=== PATIENT | male | born 1980 | race Hispanic/Latino ===

== ENCOUNTER 2024-10-12 18:02 | Emergency (ER) | payer SELFPAY ==
[2024-10-12 20:29] LABS: Albumin 3.5 g/dL (3.4-5.0); Anion Gap 7.7 mEq/L (5.0-15.0); Bilirubin Total 0.5 mg/dL (0.2-1.0); Globulin 3.6 g/dL (2.3-3.5); Potassium 3.7 mEq/L (3.5-5.1); Protein, Total 7.1 g/dL (6.4-8.2)
[2024-10-12 20:31] LABS: Absolute Eosinophils 0.2 K/uL (0-0.5); Absolute Monocytes 0.8 K/uL (0.1-1.3); Absolute Neutrophil 3.8 K/uL (1.8-8.0); Basophils % 0.6 % (0-1.3); Hematocrit 44.6 % (39.6-49.0); Hemoglobin 15.5 g/dL (13.6-17.9); Lymphocytes % 29.5 % (15.3-44.8); MCH 31.3 pg (27.0-35.0); MCHC 34.6 g/dL (32.0-36.0); MCV 90.3 fL (80-100); MPV 9.6 fL (7.6-11.3); Monocytes % 11.6 % (3.3-12.3); Neutrophils % 55.3 % (41.7-73.7); Platelets 182 thou/uL (152-406); RBC Red Blood Cell Count 4.94 M/uL (4.33-5.43); Red Cell Distribution Width 14.7 % (12.1-15.2)
--- NOTE | 2024-10-12 22:01 | RAD REPORT ---
EXAMINATION: CT Abdomen Pelvis W Contrast CLINICAL INDICATION: Male, 44 years old. ABD PAIN TECHNIQUE: CT abdomen and pelvis was performed, after the administration of IV contrast, as per [facility] protocol. Axial, sagittal and coronal reconstructions were obtained. One or more of the following dose reduction techniques were used: Automated exposure control, adjustment of the mA and k V according to patient size, and iterative reconstruction. Unless otherwise specified, incidental findings do not require dedicated imaging follow-up. COMPARISON: No prior exam. FINDINGS: LOWER CHEST: The visualized lung bases are clear. Elevation of the right hemidiaphragm, with platelik e subsegmental atelectasis. LIVER: Normal in size and contour. Numerous subcentimeter hypoattenuating lesions, difficult to jae cterize but may suggest small cysts. No suspicious focal lesion. BILIARY SYSTEM: Numerous large cholesterol containing stones. No pericholecystic fluid or wall thicke jesus alberto SPLEEN: Normal size. No focal lesion. PANCREAS: No mass, ductal dilation, or annabelle-pancreatic fluid. ADRENALS: Normal; no mass. KIDNEYS: Normal size and contour. No hydronephrosis. Left lower pole calculi not exceeding 2 mm URINARY BLADDER: Suboptimally distended limiting evaluation. GASTROINTESTINAL TRACT: No evidence of free air, significant intra-abdominal free fluid, bowel obstru ction or abscess. APPENDIX: Normal appendix. LYMPH NODES: No lymphadenopathy. MUSCULOSKELETAL: No acute or suspicious osseous abnormality. ADDITIONAL FINDINGS: None. IMPRESSION: Nonobstructing left lower pole tiny renal calculi. Cholelithiasis. No other acute or concerning abnormalities seen in the abdomen or pelvis.
--- NOTE | 2024-10-12 22:08 | ER ---
Nurse's Notes [facility] Name: Peter Baird Age: 44 yrs Sex: Male : 1980 Arrival Date: 10/12/2024 Time: 18:02 Bed 13 Private MD: Diagnosis: Lower abdominal pain, unspecified;Other cholelithiasis without obstruction Presentation: 10/12 18:32 Chief complaint: Patient states: Mouth gets watery, entire abdominal cramping with ll1 nausea and dry heaves since 10 AM. Now pain mostly LUQ. Coronavirus screen: Client denies travel out of the [place] in the last 14 days. At this time, the client does not indicate any symptoms associated with coronavirus-19. Ebola Screen: Patient denies travel to an Ebola-affected area in the 21 days before illness onset. Initial Sepsis Screen: Does the patient meet any 2 criteria? No. Patient's initial sepsis screen is negative. Does the patient have a suspected source of infection? No. Patient's initial sepsis screen is negative. Risk Assessment: Do you want to hurt yourself or someone else? Patient reports no desire to harm self or others. Onset of symptoms was October 12, 2024. 18:32 Method Of Arrival: Ambulatory ll1 18:32 Acuity: DEN 3 ll1 Triage Assessment: 18:34 General: Appears uncomfortable, Behavior is calm, cooperative, appropriate for age. ll1 Pain: Complains of pain in abdomen Quality of pain is described as aching, crampy. Neuro: No deficits noted. GI: Reports upper abdominal pain, cramping, nausea, vomiting. Historical: - Allergies: 18:32 No Known Allergies; ll1 - Home Meds: 18:32 None [Active]; ll1 - PMHx: 18:32 None; ll1 - PSHx: 18:32 None; ll1 - Immunization history:: Adult Immunizations up to date. - Infectious Disease History:: Denies. - Social history:: Smoking status: Patient denies any tobacco usage or history of. Screenin:40 [facility] ED Fall Risk Assessment (Adult) History of falling in the last 3 months, lg3 including since admission No falls in past 3 months (0 pts) Confusion or Disorientation No (0 pts) Intoxicated or Sedated No (0 pts) Impaired Gait No (0 pts) Mobility Assist Device Used No (0 pt) Altered Elimination No (0 pt) Score/Fall Risk Level 0 - 2 = Low Risk Oriented to surroundings, Maintained a safe environment, Educated pt \T\ family on fall prevention, incl call for assistance when getting out of bed, Assessed \T\ reinforced patient's understanding of fall precautions. Abuse screen: Denies threats or abuse. Denies injuries from another. Nutritional screening: No deficits noted. Tuberculosis screening: No symptoms or risk factors identified. Assessment: 21:40 General: Appears in no apparent distress. uncomfortable, Behavior is calm, cooperative. lg3 Pain: Complains of pain in left upper quadrant Pain does not radiate. Pain currently is 3 out of 10 on a pain scale. Quality of pain is described as crampy, pressure, Also complains of nausea. Neuro: No deficits noted. Byrd Agitation-Sedation Scale (RASS): 0 - Alert and Calm Level of Consciousness is awake, alert, obeys commands, Oriented to person, place, time, situation. Cardiovascular: No deficits noted. Denies chest pain, shortness of breath, Capillary refill < 3 seconds Clubbing of nail beds is absent JVD is absent Patient's skin is warm and dry. Respiratory: No deficits noted. Airway is patent Respiratory effort is even, unlabored, Respiratory pattern is regular, symmetrical. GI: No deficits noted. Abdomen is flat, non-distended, Bowel sounds present X 4 quads. Abd is soft and non tender X 4 quads. Reports upper abdominal pain, cramping, nausea. : No signs and/or symptoms were reported regarding the genitourinary system. EENT: No deficits noted. No signs and/or symptoms were reported regarding the EENT system. Derm: No deficits noted. No signs and/or symptoms reported regarding the dermatologic system. Skin is intact, is healthy with good turgor, Skin is dry, Skin is normal, Skin temperature is warm. Musculoskeletal: No deficits noted. No signs and/or symptoms reported regarding the musculoskeletal system. Circulation, motion, and sensation intact. Range of motion: intact in all extremities. Vital Signs: 18:32 BP 133 / 72; Pulse 72; Resp 16; Pulse Ox 100% ; Weight 86.18 kg; Height 5 ft. 7 in. ; ll1 Pain 0/10; 21:40 BP 127 / 73; Pulse 77; Resp 17 S; Pulse Ox 100% on R/A; lg3 18:32 Body Mass Index 29.76 (86.18 kg, 170.18 cm) ll1 18:32 Pain Scale: Adult ll1 ED Course: 18:04 Patient arrived in ED. mr 18:04 Sarah Rooney MD is Attending Physician. sp3 18:12 Arm band placed on. 1 18:31 Jazzmine Tejada F[facility]-C [facility]. kb 18:34 Triage completed. [facility] 19:51 CBC with Diff Sent. f 19:51 CMP Sent. [facility] 19:51 Lipase Sent. [facility] 19:52 Inserted saline lock: 22 gauge in right antecubital area, using aseptic technique. [facility] Blood collected. Flushed with 10 mL NS. 19:52 Initial lab(s) drawn, by me, sent to lab. [facility] 20:01 Radiology exam delayed due to lab results not completed at this time. 3 21:02 Zachariah Bryant, RN is Primary Nurse. rg5 21:05 CT Abd/Pelvis - IV Contrast Only In Process Unspecified. EDMS 21:40 Patient has correct armband on for positive identification. Bed in low position. Call lg3 light in reach. Door closed. Warm blanket given. 22:22 No provider procedures requiring assistance completed. IV discontinued, intact, lg3 bleeding controlled, No redness/swelling at site. Pressure dressing applied. Administered Medications: No medications were administered Medication: 21:40 VIS not applicable for this client. lg3 Outcome: 22:08 Discharge ordered by MD. kb 22:22 Discharged to home ambulatory, lg3 22:22 Condition: stable 22:22 Discharge instructions given to patient, Instructed on discharge instructions, follow up and referral plans. Demonstrated understanding of instructions, follow-up care, 22:22 Patient left the ED. lg3 Signatures: Dispatcher [employer] EDMS Jazzmine Tejada FNP-C FNP-Jaycee Ina Kim, Reg Reg [place] mw3 Larisa Persaud RN RN lg3 Gonzalo Chaves RN RN ll1 Sarah Rooney MD MD sp3 Ellie Sapp [facility] Zachariah Bryant, RN RN rg5 Corrections: (The following items were deleted from the chart) 18:36 18:32 BP 133 / 72; Pulse 72bpm; Resp 16bpm; Pulse Ox 100%; Pain 0/10, Adult; ll1 ll1
--- NOTE | 2024-10-12 22:08 | EDPHYS ---
Physician Documentation [facility] Name: Peter Baird Age: 44 yrs Sex: Male : 1980 Arrival Date: 10/12/2024 Time: 18:02 Bed 13 Private MD: ED Physician Sarah Rooney HPI: 10/12 22:39 This 44 yrs old Male presents to ER via Ambulatory with complaints of kb Abdominal Pain. 22:39 Pt is a 44 year old male who presents for lower abd pain and nausea that started today. kb States he has had this a few times over the last year with 4-5 months in between episodes. Reports he gets a tight feeling in his lower abd that radiates up to the top and then releases. Denies diarrhea, vomiting, fever. Historical: - Allergies: 18:32 No Known Allergies; ll1 - Home Meds: 18:32 None [Active]; ll1 - PMHx: 18:32 None; ll1 - PSHx: 18:32 None; ll1 - Immunization history:: Adult Immunizations up to date. - Infectious Disease History:: Denies. - Social history:: Smoking status: Patient denies any tobacco usage or history of. ROS: 22:37 Constitutional: As per HPI kb Exam: 22:37 Constitutional: This is a well developed, well nourished patient who is awake, alert, kb and in no acute distress. Head/Face: Normocephalic, atraumatic. ENT: Moist Mucous membranes Cardiovascular: Regular rate Respiratory: Respirations even and unlabored. No increased work of breathing. Talking in full sentences Abdomen/GI: Soft, non-tender. No distention Skin: Warm, dry with normal turgor. Normal color. MS/ Extremity: Pulses equal, no cyanosis. Neurovascular intact. Full, normal range of motion. Neuro: Awake and alert, GCS 15, oriented to person, place, time, and situation. Vital Signs: 18:32 BP 133 / 72; Pulse 72; Resp 16; Pulse Ox 100% ; Weight 86.18 kg; Height 5 ft. 7 in. ; ll1 Pain 0/10; 21:40 BP 127 / 73; Pulse 77; Resp 17 S; Pulse Ox 100% on R/A; lg3 18:32 Body Mass Index 29.76 (86.18 kg, 170.18 cm) ll1 18:32 Pain Scale: Adult ll1 MDM: 18:29 Medical Screening Exam initiated sp3 22:40 Differential diagnosis: appendicitis, diverticulitis, gastritis, gastroesophageal kb reflux disease, non-specific abd pain, pancreatitis. Data reviewed: vital signs, nurses notes. Counseling: I had a detailed discussion with the patient and/or guardian regarding the historical points, exam findings, and any diagnostic results supporting the discharge/admit diagnosis, lab results, radiology results, the need for outpatient follow up, a provider contracting consultant, to return to the emergency department if symptoms worsen or persist or if there are any questions or concerns that arise at home. 10/12 18:36 Order name: CBC with Diff; Complete Time: 20:34 kb 10/12 18:36 Order name: CMP; Complete Time: 20:29 kb 10/12 18:36 Order name: Lipase; Complete Time: 20:29 kb 10/12 18:36 Order name: CT Abd/Pelvis - IV Contrast Only; Complete Time: 22:02 kb 10/12 18:36 Order name: IV Saline Lock; Complete Time: 19:51 kb 10/12 18:36 Order name: Labs collected and sent; Complete Time: 19:51 kb Administered Medications: No medications were administered Disposition Summary: 10/12/24 22:08 Discharge Ordered Notes: Location: Home kb Condition: Stable kb Diagnosis - Lower abdominal pain, unspecified kb - Other cholelithiasis without obstruction kb Followup: kb - With: Emergency Department - When: As needed - Reason: Worsening of condition Followup: kb - With: Private Physician - When: 2 - 3 days - Reason: Recheck today's complaints, Continuance of care, Re-evaluation by your physician Discharge Instructions: - Discharge Summary Sheet kb - Cholelithiasis, [id number] kb - Abdominal Pain, Adult, [id number] kb Forms: - Medication Reconciliation Form kb - Antibiotic Education kb - Prescription Opioid Use kb - Patient Portal Instructions kb - Leadership Thank You Letter kb Signatures: Dispatcher [employer] Jazzmine Pruitt FNP-C FNP-Larisa Ferraro RN RN lg3 Gonzalo Chaves RN RN ll1 Sarah Rooney MD MD sp3
[2024-10-15 15:39] VITALS: BP 127/73; O2SAT 100
== END 2024-10-12 22:22 | disposition home or self-care (01) ==
LOC: ER 18:02
DX: K80.80 Other cholelithiasis without obstruction (principal); R10.30 Lower abdominal pain, unspecified
CPT/HCPCS: 36415; 74177; 80053; 83690; 85025; 99283; Q9967

== ENCOUNTER 2025-01-03 08:33 | Emergency (ER) | payer SELFPAY ==
[2025-01-03] MEDS ORDERED: NA CHLORIDE 0.9% 1,000 ML ONE (08:51)
[2025-01-03] MEDS ORDERED: ONDANSETRON 4 MG/2 ML VIAL ONE ×2 (08:51→09:09)
[2025-01-03] MEDS ORDERED: MORPHINE 4 MG/ML SYR ONE (08:51)
[2025-01-03] MEDS ORDERED: HYDROMORPHONE HCL 1 MG/ML INJ ONE ×2 (09:09→10:28)
[2025-01-03 09:28] LABS: Absolute Eosinophils 0.1 K/uL (0-0.5); Absolute Monocytes 1.1 K/uL (0.1-1.3); Absolute Neutrophil 3.8 K/uL (1.8-8.0); Basophils % 0.5 % (0-1.3); Eosinophils % 1.3 % (0-4.4); Hematocrit 47.4 % (39.6-49.0); Lymphocytes % 37.4 % (15.3-44.8); MCH 31.8 pg (27.0-35.0); MCHC 35.9 g/dL (32.0-36.0); MCV 88.7 fL (80-100); MPV 10.3 fL (7.6-11.3); Monocytes % 13.7 % (3.3-12.3); Neutrophils % 47.1 % (41.7-73.7); Nucleated Red Blood Cells % 0.1 % (0-0); Platelets 217 thou/uL (152-406); RBC Red Blood Cell Count 5.34 M/uL (4.33-5.43); Red Cell Distribution Width 13.3 % (12.1-15.2)
[2025-01-03 09:33] LABS: Albumin 3.6 g/dL (3.4-5.0); Albumin/Globulin Ratio 0.9 (1.1-1.8); Anion Gap 13.2 mEq/L (5.0-15.0); Bilirubin Total 0.7 mg/dL (0.2-1.0); Globulin 4.1 g/dL (2.3-3.5); Potassium 3.2 mEq/L (3.5-5.1); Protein, Total 7.7 g/dL (6.4-8.2)
[2025-01-03 11:19] LABS: Specific Gravity 1.021 (1.005-1.030); Sqamous Epithelial <5 /HPF (None Seen); Urine Bacteria None Seen /HPF (<20); Urine Bilirubin NEGATIVE (Negative); Urine Blood Negative (Negative); Urine Clarity Turbid (Clear); Urine Color Light-Yellow (Yellow); Urine Glucose NEGATIVE (Negative); Urine Ketones TRACE (Negative); Urine Microscopic Reflex YN ORDER UMIC; Urine Nitrite NEGATIVE (Negative); Urine Protein NEGATIVE (Negative); Urine RBC <5 /HPF (None Seen); Urine Urobilinogen Normal (Normal); Urine WBC <5 /HPF (<5)
[2025-01-03 11:20] LABS: Urine Culture Reflex Order NOT NEEDED; Urine Mucus Slight /HPF (None Seen)
--- NOTE | 2025-01-03 12:03 | RAD REPORT ---
EXAM: Right upper quadrant ultrasound. CLINICAL HISTORY: RUQ pain COMPARISON: None. FINDINGS: Gallbladder: Large gallstone in the region of the gallbladder neck. Bile ducts: No intrahepatic or extrahepatic biliary dilatation. Common bile duct measures 5 mm. Limited imaging of the liver shows no concerning finding. IMPRESSION: Cholelithiasis.
--- NOTE | 2025-01-03 12:39 | ER ---
Nurse's Notes [facility] Name: Peter Baird Age: 44 yrs Sex: Male : 1980 Arrival Date: 01/03/2025 Time: 08:33 Bed 8 Private MD: Diagnosis: Biliary colic, abdominal pain Presentation: 01/03 08:49 Chief complaint: Patient states: Upper abdominal pain x 10 minutes, had a milk shake jl7 about an hour ago, hx of cholelithiasis. Coronavirus screen: At this time, the client does not indicate any symptoms associated with coronavirus-19. Ebola Screen: No symptoms or risks identified at this time. Initial Sepsis Screen: Does the patient meet any 2 criteria? No. Patient's initial sepsis screen is negative. Does the patient have a suspected source of infection? No. Patient's initial sepsis screen is negative. Risk Assessment: Do you want to hurt yourself or someone else? Patient reports no desire to harm self or others. Onset of symptoms was January 03, 2025 at 08:35. 08:49 Method Of Arrival: Ambulatory jl7 08:49 Acuity: DEN 3 jl7 Triage Assessment: 08:52 General: Appears in no apparent distress. uncomfortable, Behavior is cooperative, jl7 anxious, restless. Pain: Complains of pain in right upper quadrant and left upper quadrant Pain currently is 10 out of 10 on a pain scale. Historical: - Allergies: 08:52 No Known Allergies; jl7 - Home Meds: 08:52 None [Active]; jl7 - PMHx: 08:52 cholelithiasis; jl7 - PSHx: 08:52 None; jl7 - Immunization history:: Adult Immunizations unknown. - Infectious Disease History:: Denies. - Social history:: Smoking status: Patient denies any tobacco usage or history of. Screenin:55 [facility] ED Fall Risk Assessment (Adult) History of falling in the last 3 months, aa5 including since admission No falls in past 3 months (0 pts) Confusion or Disorientation No (0 pts) Intoxicated or Sedated No (0 pts) Impaired Gait No (0 pts) Mobility Assist Device Used No (0 pt) Altered Elimination No (0 pt) Score/Fall Risk Level 0 - 2 = Low Risk Oriented to surroundings, Maintained a safe environment, Educated pt \\T\\ family on fall prevention, incl call for assistance when getting out of bed, Assessed \\T\\ reinforced patient's understanding of fall precautions. Abuse screen: Denies threats or abuse. Nutritional screening: No deficits noted. Tuberculosis screening: No symptoms or risk factors identified. Assessment: 08:53 General: Appears uncomfortable, Behavior is cooperative, restless. Pain: Complains of aa5 pain in right upper quadrant, left upper quadrant, and lower back Pain currently is 10 out of 10 on a pain scale. Quality of pain is described as crampy, sharp, shooting, Pain began today Is continuous, Noted to be guarding, moaning, restless. Neuro: Level of Consciousness is awake, alert, obeys commands, Oriented to person, place, time, situation. Cardiovascular: Heart tones S1 S2 present Rhythm is regular. Respiratory: Airway is patent Respiratory effort is even, unlabored, Respiratory pattern is tachypnea. GI: Abdomen is round non-distended, Bowel sounds present X 4 quads. Abdomen is tender to palpation in right upper quadrant and left upper quadrant Reports nausea, vomiting. : No signs and/or symptoms were reported regarding the genitourinary system. EENT: No signs and/or symptoms were reported regarding the EENT system. Derm: Skin is diaphoretic, Skin is pale, Skin temperature is cool. Musculoskeletal: Range of motion: intact in all extremities. 08:53 Reassessment: Pt pacing in the room, refusing to sit on bed, pt states "I can't sit, it aa5 hurts too bad" . 09:00 Reassessment: Pt now in bed. . aa5 09:17 Reassessment: Pt appears calm and more comfortable now, lying down in bed. . aa5 09:20 Reassessment: Pt resting in bed with eyes closed, easy to awaken to verbal stimuli. . aa5 General: Appears comfortable. 10:27 Reassessment: Patient is alert, oriented x 3, equal unlabored respirations, skin aa5 warm/dry/pink. Pt c/o increased pain. . 10:27 Pain: Pain currently is 5 out of 10 on a pain scale. aa5 10:58 Reassessment: Pt to US . aa5 12:00 Reassessment: Pt sleeping. . aa5 12:55 Reassessment: Patient is alert, oriented x 3, equal unlabored respirations, skin aa5 warm/dry/pink. Vital Signs: 08:49 Weight 86.18 kg; Height 5 ft. 8 in. ; Pain 10/10; jl7 08:55 Pulse 88; Resp 46 S; Pulse Ox 99% on R/A; aa5 09:16 BP 132 / 81; Pulse 70; Resp 24 S; Temp 97.8(O); Pulse Ox 98% on R/A; aa5 09:20 Resp 14 S; Pulse Ox 88% on R/A; aa5 09:21 Resp 15 S; Pulse Ox 99% on 2 lpm NC; aa5 10:28 BP 131 / 66; Pulse 72; Resp 16 S; Pulse Ox 99% on 2 lpm NC; aa5 12:00 BP 125 / 64; Pulse 70; Resp 18 S; Pulse Ox 99% on R/A; aa5 08:49 Body Mass Index 28.89 (86.18 kg, 172.72 cm) jl7 08:49 Pain Scale: Adult jl7 08:55 unable to obtain BP due to pt being restless. aa5 ED Course: 08:34 Patient arrived in ED. al6 08:37 Sarah Rooney MD is Attending Physician. sp3 08:47 Nissa Escobedo, KRISTIE is Primary Nurse. aa5 08:52 Triage completed. jl7 08:52 Arm band placed on right wrist. jl7 08:53 Patient has correct armband on for positive identification. Bed in low position. Call aa5 light in reach. Side rails up X 1. 08:53 Pulse ox on. NIBP on. aa5 08:53 Initial lab(s) drawn, by hi, sent to lab. Inserted saline lock: 20 gauge in left aa5 antecubital area, using aseptic technique. Blood collected. Flushed with 10 mL NS. 09:28 No provider procedures requiring assistance completed. aa5 11:13 US Abdomen Limited In Process Unspecified. EDMS 12:37 Joselo Greenberg MD is Referral Physician. sp3 12:37 Karl Waters MD is Referral Physician. sp3 12:55 IV discontinued, intact, bleeding controlled, No redness/swelling at site. Pressure aa5 dressing applied. Administered Medications: 09:00 Drug: Ondansetron IVP 4 mg IVP once; over 2 minutes Route: IVP; Site: left antecubital; aa5 09:15 Follow up: Response: No adverse reaction aa5 09:00 Drug: morphine IVP or IV 4 mg IVP once over 4 mins Route: IVP; Infused Over: 4 mins; aa5 Site: left antecubital; 09:15 Follow up: Response: No adverse reaction; Pain is unchanged, physician notified aa5 09:00 Drug: NS 0.9% IV 1000 ml IV at 1 bolus Per protocol; to be given as a bolus over 60 aa5 minutes Route: IV; Rate: 1 bolus; Site: left antecubital; 10:00 Follow up: IV Status: Completed infusion; IV Intake: 1000ml aa5 09:10 Drug: HYDROmorphone IVP 1 mg IVP once Route: IVP; Site: left antecubital; aa5 09:25 Follow up: Response: No adverse reaction; Marked relief of symptoms; Pain is decreased aa5 09:15 Drug: Ondansetron IVP 4 mg IVP once; over 2 minutes Route: IVP; Site: left antecubital; aa5 09:25 Follow up: Response: No adverse reaction aa5 10:30 Drug: HYDROmorphone IVP 1 mg IVP once Route: IVP; Site: left antecubital; aa5 10:35 Follow up: Response: No adverse reaction; Pain is decreased aa5 Medication: 09:28 VIS not applicable for this client. aa5 Intake: 10:00 IV: 1000ml; Total: 1000ml. aa5 Outcome: 12:37 Discharge ordered by . sp3 12:55 Discharged to home ambulatory, aa5 12:55 Condition: improved 12:55 Discharge instructions given to patient, Instructed on discharge instructions, follow up and referral plans. medication usage, Demonstrated understanding of instructions, follow-up care, medications, Prescriptions given X 2, 13:01 Patient left the ED. aa5 Signatures: Dispatcher [employer] EDMS Nissa Escobedo RN RN aa5 Patricia Figueroa RN RN jl7 Sarah Rooney MD MD sp3 Jennifer Pineda6 Corrections: (The following items were deleted from the chart) 10: 09:15 Response: No adverse reaction; Pain is unchanged, physician notified aa5 aa5
--- NOTE | 2025-01-03 12:39 | EDPHYS ---
Physician Documentation [facility] Name: Peter Baird Age: 44 yrs Sex: Male : 1980 Arrival Date: 01/03/2025 Time: 08:33 Bed 8 Private MD: ED Physician Sarah Rooney HPI: 01/03 08:57 This 44 yrs old Male presents to ER via Ambulatory with complaints of sp3 gallbladder stone. 08:57 44-year-old male with no past medical history except cholelithiasis diagnosed here on sp3 his last visit now presents with recurrent right upper quadrant abdominal pain and vomiting for the last 24 to 48 hours. Patient denies any headache, fever, neck pain, chest pain, shortness of breath, lower abdominal pain, diarrhea, rash, potential bad food, known sick contacts, travel history or any other signs or symptoms on ROS at this time.. Historical: - Allergies: 08:52 No Known Allergies; jl7 - Home Meds: 08:52 None [Active]; jl7 - PMHx: 08:52 cholelithiasis; jl7 - PSHx: 08:52 None; jl7 - Immunization history:: Adult Immunizations unknown. - Infectious Disease History:: Denies. - Social history:: Smoking status: Patient denies any tobacco usage or history of. ROS: 08:58 Constitutional: Negative for fever, chills, and weight loss, Eyes: Negative for injury, sp3 pain, redness, and discharge, Neck: Negative for injury, pain, and swelling, Cardiovascular: Negative for chest pain, palpitations, and edema, Respiratory: Negative for shortness of breath, cough, wheezing, and pleuritic chest pain, Back: Negative for injury and pain, MS/Extremity: Negative for injury and deformity, Skin: Negative for injury, rash, and discoloration, Neuro: Negative for headache, weakness, numbness, tingling, and seizure, Psych: Negative for depression, anxiety, suicide ideation, homicidal ideation, and hallucinations, Allergy/Immunology: Negative for hives, rash, and allergies, Endocrine: Negative for neck swelling, polydipsia, polyuria, polyphagia, and marked weight changes, Hematologic/Lymphatic: Negative for swollen nodes, abnormal bleeding, and unusual bruising, 08:58 All other systems are negative, Exam: 08:58 Constitutional: This is a well developed, well nourished patient who is awake, alert, sp3 and in no acute distress. Head/Face: Normocephalic, atraumatic. Eyes: Pupils equal round and reactive to light, extra-ocular motions intact. Lids and lashes normal. Conjunctiva and sclera are non-icteric and not injected. Cornea within normal limits. Periorbital areas with no swelling, redness, or edema. Neck: Trachea midline, no thyromegaly or masses palpated, and no cervical lymphadenopathy. Supple, full range of motion without nuchal rigidity, or vertebral point tenderness. No Meningismus. Chest/axilla: Normal chest wall appearance and motion. Nontender with no deformity. No lesions are appreciated. Cardiovascular: Regular rate and rhythm with a normal S1 and S2. No gallops, murmurs, or rubs. Normal PMI, no JVD. No pulse deficits. Respiratory: Lungs have equal breath sounds bilaterally, clear to auscultation and percussion. No rales, rhonchi or wheezes noted. No increased work of breathing, no retractions or nasal flaring. Back: No spinal tenderness. No costovertebral tenderness. Full range of motion. Skin: Warm, dry with normal turgor. Normal color with no rashes, no lesions, and no evidence of cellulitis. MS/ Extremity: Pulses equal, no cyanosis. Neurovascular intact. Full, normal range of motion. Neuro: Awake and alert, GCS 15, oriented to person, place, time, and situation. Cranial nerves II-XII grossly intact. Motor strength 5/5 in all extremities. Sensory grossly intact. Cerebellar exam normal. Normal gait. Psych: Awake, alert, with orientation to person, place and time. Behavior, mood, and affect are within normal limits. 08:58 Abdomen/GI: Right upper quadrant abdominal pain to palpation with positive Salmon sign. Patient pacing in the room and pain., Vital Signs: 08:49 Weight 86.18 kg; Height 5 ft. 8 in. ; Pain 10/10; jl7 08:55 Pulse 88; Resp 46 S; Pulse Ox 99% on R/A; aa5 09:16 BP 132 / 81; Pulse 70; Resp 24 S; Temp 97.8(O); Pulse Ox 98% on R/A; aa5 09:20 Resp 14 S; Pulse Ox 88% on R/A; aa5 09:21 Resp 15 S; Pulse Ox 99% on 2 lpm NC; aa5 10:28 BP 131 / 66; Pulse 72; Resp 16 S; Pulse Ox 99% on 2 lpm NC; aa5 12:00 BP 125 / 64; Pulse 70; Resp 18 S; Pulse Ox 99% on R/A; aa5 08:49 Body Mass Index 28.89 (86.18 kg, 172.72 cm) jl7 08:49 Pain Scale: Adult jl7 08:55 unable to obtain BP due to pt being restless. aa5 MDM: 08:42 Medical Screening Exam initiated sp3 08:59 Data reviewed: vital signs, nurses notes, old medical records, lab test result(s), sp3 radiologic studies. ED course: 44-year-old male with history of gallstones presents with right upper quad abdominal pain and vomiting. Differential diagnosis includes biliary colic, Tanvi cystitis, other biliary pathology, gastritis, pancreatitis, pathology, among others. I am not highly suspicious of vascular pathology, sepsis, shock or any other critical process. Patient pacing in the room and vital signs are still pending. I have ordered morphine, Zofran and full abdominal workup including ultrasound. Disposition pending workup and patient course.. 12:36 ED course: Patient with biliary colic and no signs of infection. All pain is now sp3 controlled. Vital signs remain normal. I have advised patient to follow-up with surgery to schedule outpatient removal. Will refer to on-call surgeon Dr. Greenberg as well as Dr. Waters to ensure expeditious scheduling of surgery.. 01/03 08:50 Order name: CBC with Diff; Complete Time: 10:30 sp3 01/03 08:50 Order name: CMP; Complete Time: 10:30 sp3 01/03 08:50 Order name: Lipase; Complete Time: 10:30 sp3 01/03 08:50 Order name: Urinalysis w/ reflexes; Complete Time: 11:22 sp3 01/03 10:19 Order name: US Abdomen Limited; Complete Time: 12:06 aa5 01/03 08:50 Order name: IV Saline Lock; Complete Time: 08:56 sp3 01/03 08:50 Order name: Labs collected and sent; Complete Time: 08:56 sp3 Administered Medications: 09:00 Drug: Ondansetron IVP 4 mg IVP once; over 2 minutes Route: IVP; Site: left antecubital; aa5 09:15 Follow up: Response: No adverse reaction aa5 09:00 Drug: morphine IVP or IV 4 mg IVP once over 4 mins Route: IVP; Infused Over: 4 mins; aa5 Site: left antecubital; 09:15 Follow up: Response: No adverse reaction; Pain is unchanged, physician notified aa5 09:00 Drug: NS 0.9% IV 1000 ml IV at 1 bolus Per protocol; to be given as a bolus over 60 aa5 minutes Route: IV; Rate: 1 bolus; Site: left antecubital; 10:00 Follow up: IV Status: Completed infusion; IV Intake: 1000ml aa5 09:10 Drug: HYDROmorphone IVP 1 mg IVP once Route: IVP; Site: left antecubital; aa5 09:25 Follow up: Response: No adverse reaction; Marked relief of symptoms; Pain is decreased aa5 09:15 Drug: Ondansetron IVP 4 mg IVP once; over 2 minutes Route: IVP; Site: left antecubital; aa5 09:25 Follow up: Response: No adverse reaction aa5 10:30 Drug: HYDROmorphone IVP 1 mg IVP once Route: IVP; Site: left antecubital; aa5 10:35 Follow up: Response: No adverse reaction; Pain is decreased aa5 Disposition Summary: 01/03/25 12:37 Discharge Ordered Notes: Location: Home sp3 Condition: Stable sp3 Diagnosis - Biliary colic, abdominal pain sp3 Followup: sp3 - With: Joselo Greenberg MD - When: Upon discharge from the Emergency Department - Reason: Recheck today's complaints Followup: sp3 - With: Karl Waters MD - When: Upon discharge from the Emergency Department - Reason: Recheck today's complaints Discharge Instructions: - Discharge Summary Sheet sp3 - Biliary Colic, Adult sp3 Forms: - Medication Reconciliation Form sp3 - Antibiotic Education sp3 - Prescription Opioid Use sp3 - Patient Portal Instructions sp3 - Leadership Thank You Letter sp3 Prescriptions: - Tramadol 50 mg Oral Tablet - take 1 tablet ORAL route every 8 hours as needed; 12 tablet; Refills: 0, sp3 Product Selection Permitted - ondansetron 8 mg Oral Tablet,disintegrating - take 1 tablet ORAL route every 12 hours; 20 tablet; Refills: 0, Product sp3 Selection Permitted Signatures: Dispatcher [employer] Nissa Salter, RN RN aa5 Patricia Figueroa RN RN jl7 Sarah Rooney, MD KRISHNAN sp3
[2025-01-03 14:27] VITALS: BP 131/66; TEMP 97.8; O2SAT 99
== END 2025-01-03 13:01 | disposition home or self-care (01) ==
LOC: ER 08:33
DX: K80.50 Calculus of bile duct without cholangitis or cholecystitis without obstruction (principal)
CPT/HCPCS: 36415; 76705; 80053; 81001; 83690; 85025; 96361; 96374; 96375; 99284; J1171; J2405; J7030